=== PATIENT | male | born 1955 | race Asian ===

== ENCOUNTER 2017-05-13 12:33 | Inpatient (IN) | payer OTHER ==
[~2017-05-13] VITALS: Ht 175.3 cm; Wt 72.7 kg
[2017-05-13 13:10] LABS: BASOPHILS % (AUTO) 0.6 % (0.0-2.0); EOSINOPHILS % (AUTO) 3.2 % (1.0-6.0); HEMATOCRIT 35.6 % (41-53); HEMOGLOBIN 11.8 g/dL (13.5-17.5); LYMPHOCYTES # (AUTO) 1.2 K/uL (1.0-4.8); MEAN CORPUSCULAR HEMOGLOBIN 28.8 pg (26.0-34.0); MEAN CORPUSCULAR HGB CONC 33.2 G/dL (31.0-37.0); MEAN CORPUSCULAR VOLUME 87 fL (80-100); MONOCYTES # (AUTO) 0.6 K/uL (0.1-1.0); MONOCYTES % (AUTO) 8.1 % (2.0-9.0); NEUTROPHILS # (AUTO) 5.2 K/uL (1.8-7.7); NEUTROPHILS % (AUTO) 71.1 % (40.0-70.0); PLATELET COUNT (AUTO) 181 K/uL (150-450); WHITE BLOOD COUNT (AUTO) 7.3 K/uL (4.5-11.0)
[2017-05-13] MEDS ORDERED: DOCU250C76 PO (13:19)
[2017-05-13] MEDS ORDERED: INSU100V3 SQ (13:19)
[2017-05-13] MEDS ORDERED: METO-325 PO (13:19)
[2017-05-13] MEDS ORDERED: SODI650T PO (13:19)
[2017-05-13] MEDS ORDERED: INSU3INS3 SQ (13:19)
[2017-05-13] MEDS ORDERED: LIRA0.6P SQ (13:19)
[2017-05-13] MEDS ORDERED: BENA20TA77 PO (13:19)
[2017-05-13] MEDS ORDERED: CHOL1POW2 MC (13:19)
[2017-05-13] MEDS ORDERED: CALC0.253 PO (13:19)
[2017-05-13] MEDS ORDERED: FLUO10TA3 PO (13:19)
[2017-05-13] MEDS ORDERED: FURO80TA3 PO (13:19)
[2017-05-13] MEDS ORDERED: LISI-618 PO ×2 (13:19→14:57)
[2017-05-13] MEDS ORDERED: GENT30CR TP (13:19)
[2017-05-13] MEDS ORDERED: CALC667T3 PO (13:19)
[2017-05-13] MEDS ORDERED: LACT10SO8 PO (13:19)
[2017-05-13 13:20] LABS: ANION GAP 13 mmol/L (8-16); CALCIUM, TOTAL 8.2 mg/dL (8.8-10.5); CARBON DIOXIDE 27 mmol/L (22-29); CHLORIDE 94 mmol/L (98-107); CREATININE 16.93 mg/dL (0.60-1.30); GLOMERULAR FILTR. RATE CALC 3 mL/min (>60); POTASSIUM 5.5 mmol/L (3.5-5.1); SODIUM SERUM 134 mmol/L (136-145); UREA NITROGEN, BLOOD 77 mg/dL (7-18)
[2017-05-13 13:27] LABS: ALANINE AMINOTRANSFERASE 45 U/L (12-78); ALBUMIN 2.8 g/dL (3.4-5.0); ASPARTATE AMINOTRANSFERASE 25 U/L (15-37); BILIRUBIN,TOTAL 0.4 mg/dL (0.1-1.0); TOTAL PROTEIN, SERUM 8.3 g/dL (6.4-8.2)
[2017-05-13] MEDS ORDERED: VITAD1000 PO (14:56)
[2017-05-13] MEDS ORDERED: LISINOPRIL 10 MG TABLET PO ONE (15:00)
[2017-05-13] MEDS ORDERED: 0.9% SODIUM CHLORIDE 10 ML SYRINGE IVP PRN (16:45)
[2017-05-13] MEDS ORDERED: ACETAMINOPHEN 325 MG TABLET PO PRN (16:45)
[2017-05-13] MEDS ORDERED: ONDANSETRON HCL 4 MG/2 ML VIAL IVP PRN (16:45)
[2017-05-13 17:54] VITALS: BP 199/113
[2017-05-13] MEDS: BENAZEPRIL HCL 20 MG TABLET PO SCH (19:30)
[2017-05-13] MEDS: CALCITRIOL 0.25 MCG CAPSULE PO SCH (19:30)
[2017-05-13] MEDS: HydrALAZINE HCL 20 MG/ML VIAL IVP PRN (19:36)
[2017-05-13 20:15] VITALS: BP 192/114
[2017-05-13] MEDS ORDERED: DEXTROSE 50%-WATER 25 GM/50 ML SYRINGE IVP PRN (20:15)
[2017-05-13] MEDS: INSULIN REGULAR, HUMAN 100 UNITS/ML SQ SCH (21:00)
[2017-05-13] MEDS: DOCUSATE SODIUM 250 MG CAPSULE PO SCH (21:00)
[2017-05-13] MEDS: FUROSEMIDE 80 MG TABLET PO SCH (21:34)
[2017-05-13] MEDS: LACTULOSE 20 GM/30 ML SOLUTION UDCUP PO SCH (21:34)
[2017-05-13] MEDS: SODIUM BICARBONATE 650 MG TABLET PO SCH (21:34)
[2017-05-13] MEDS: INSULIN ASPART 100 UNITS/ML SQ PRN (21:36)
[2017-05-13 21:48] VITALS: BP 182/95
[2017-05-13 22:42] LABS: GLUCOSE,POINT OF CARE 153 MG/DL (70-110)
[2017-05-13] MEDS: LISINOPRIL 20 MG TABLET PO SCH (22:44)
[2017-05-14] VITALS (7 sets, daily range): BP systolic 136–175; BP diastolic 71–93
[2017-05-14] MEDS: HydrALAZINE HCL 20 MG/ML VIAL IVP PRN ×2 (00:36→05:46)
[2017-05-14] MEDS: INSULIN ASPART 100 UNITS/ML SQ PRN ×4 (05:52→21:02)
[2017-05-14] MEDS ORDERED: ACETAMINOPHEN 325 MG TABLET PO PRN (06:00)
[2017-05-14 06:26] LABS: INR 1.1 (0.9-1.1); PROTHROMBIN TIME 11.2 SEC (9.4-11.6)
[2017-05-14 06:28] LABS: ALBUMIN 2.4 g/dL (3.4-5.0); BILIRUBIN,TOTAL 0.4 mg/dL (0.1-1.0); CALCIUM, TOTAL 7.5 mg/dL (8.8-10.5); CREATININE 15.46 mg/dL (0.60-1.30); POTASSIUM 4.5 mmol/L (3.5-5.1)
[2017-05-14 06:45] LABS: BILIRUBIN,DIRECT 0.2 mg/dL (0.00-0.20)
[2017-05-14] MEDS: BENAZEPRIL HCL 20 MG TABLET PO SCH (08:18)
[2017-05-14] MEDS: METOPROLOL SUCCINATE 50 MG ER TABLET PO SCH (08:18)
[2017-05-14] MEDS: CHOLECALCIFEROL (VIT D3) 1,000 UNITS TABLET PO SCH (08:18)
[2017-05-14] MEDS: LISINOPRIL 20 MG TABLET PO SCH ×2 (08:18→19:54)
[2017-05-14] MEDS: FUROSEMIDE 80 MG TABLET PO SCH ×2 (08:18→19:53)
[2017-05-14] MEDS: DOCUSATE SODIUM 250 MG CAPSULE PO SCH ×2 (08:18→19:54)
[2017-05-14] MEDS: CALCITRIOL 0.25 MCG CAPSULE PO SCH (08:18)
[2017-05-14] MEDS: LACTULOSE 20 GM/30 ML SOLUTION UDCUP PO SCH ×3 (08:19→19:53)
[2017-05-14] MEDS: SODIUM BICARBONATE 650 MG TABLET PO SCH ×2 (08:24→19:54)
[2017-05-14] MEDS: GENTAMICIN SULFATE 0.1% 15 GM CREAM TP SCH (12:16)
[2017-05-14] MEDS ORDERED: ENALAPRILAT DIHYDRATE 1.25 MG/ML VIAL IVP PRN (13:15)
[2017-05-14] MEDS ORDERED: ONDANSETRON HCL 4 MG/2 ML VIAL IVP PRN (13:15)
[2017-05-14] MEDS ORDERED: HYDROCODONE/ACETAMINOPHEN 5-325 MG TABLET PO PRN (13:15)
[2017-05-14] MEDS: FLUoxetine HCL 20 MG CAPSULE PO SCH (16:05)
[2017-05-14] MEDS: INSULIN REGULAR, HUMAN 100 UNITS/ML SQ SCH (21:06)
[2017-05-15] MEDS: INSULIN ASPART 100 UNITS/ML SQ PRN ×2 (05:57→17:08)
[2017-05-15 08:51] VITALS: BP 164/90
[2017-05-15] MEDS: CHOLECALCIFEROL (VIT D3) 1,000 UNITS TABLET PO SCH (08:51)
[2017-05-15] MEDS: LISINOPRIL 20 MG TABLET PO SCH ×2 (08:51→20:52)
[2017-05-15] MEDS: DOCUSATE SODIUM 250 MG CAPSULE PO SCH ×2 (08:51→20:52)
[2017-05-15] MEDS: FLUoxetine HCL 20 MG CAPSULE PO SCH (08:52)
[2017-05-15] MEDS: SODIUM BICARBONATE 650 MG TABLET PO SCH ×2 (08:52→20:52)
[2017-05-15] MEDS: CALCITRIOL 0.25 MCG CAPSULE PO SCH (08:52)
[2017-05-15] MEDS: METOPROLOL SUCCINATE 50 MG ER TABLET PO SCH (08:52)
[2017-05-15] MEDS: FUROSEMIDE 80 MG TABLET PO SCH ×2 (08:52→20:52)
[2017-05-15] MEDS: BENAZEPRIL HCL 20 MG TABLET PO SCH (08:57)
[2017-05-15] MEDS: GENTAMICIN SULFATE 0.1% 15 GM CREAM TP SCH (08:58)
[2017-05-15] MEDS: LACTULOSE 20 GM/30 ML SOLUTION UDCUP PO SCH ×3 (09:00→20:25)
[2017-05-15 11:46] VITALS: BP 168/88
[2017-05-15 15:29] VITALS: BP 159/79
[2017-05-15 19:46] VITALS: BP 179/99
[2017-05-15] MEDS: INSULIN REGULAR, HUMAN 100 UNITS/ML SQ SCH (20:51)
[2017-05-15 23:30] VITALS: BP 162/80
[2017-05-16 03:30] VITALS: BP 166/88
[2017-05-16] MEDS: INSULIN ASPART 100 UNITS/ML SQ PRN (06:36)
[2017-05-16 07:08] LABS: BASOPHILS # (AUTO) 0.04 K/uL (0.00-0.20); BASOPHILS % (AUTO) 0.6 % (0.0-2.0); EOSINOPHILS # (AUTO) 0.17 K/uL (0.00-0.70); HEMATOCRIT 30.6 % (41-53); LYMPHOCYTES # (AUTO) 1.6 K/uL (1.0-4.8); LYMPHOCYTES % (AUTO) 23.2 % (22.0-44.0); MEAN CORPUSCULAR HEMOGLOBIN 29.1 pg (26.0-34.0); MEAN CORPUSCULAR HGB CONC 32.6 G/dL (31.0-37.0); MEAN CORPUSCULAR VOLUME 89 fL (80-100); MONOCYTES # (AUTO) 0.7 K/uL (0.1-1.0); MONOCYTES % (AUTO) 10.9 % (2.0-9.0); NEUTROPHILS # (AUTO) 4.2 K/uL (1.8-7.7); NEUTROPHILS % (AUTO) 62.8 % (40.0-70.0); PLATELET COUNT (AUTO) 140 K/uL (150-450); RED BLOOD CELL COUNT(AUTO) 3.43 MIL/uL (4.50-5.90); RED CELL DISTRIBUTION WIDTH 15.6 % (11.5-14.5); WHITE BLOOD COUNT (AUTO) 6.7 K/uL (4.5-11.0)
[2017-05-16 07:19] LABS: CALCIUM, TOTAL 7.7 mg/dL (8.8-10.5); CREATININE 14.26 mg/dL (0.60-1.30); MAGNESIUM 2.2 mg/dL (1.80-2.40); POTASSIUM 4.2 mmol/L (3.5-5.1)
[2017-05-16] MEDS: CHOLECALCIFEROL (VIT D3) 1,000 UNITS TABLET PO SCH (07:54)
[2017-05-16] MEDS: METOPROLOL SUCCINATE 50 MG ER TABLET PO SCH (07:55)
[2017-05-16] MEDS: FUROSEMIDE 80 MG TABLET PO SCH (07:55)
[2017-05-16] MEDS: DOCUSATE SODIUM 250 MG CAPSULE PO SCH (07:55)
[2017-05-16] MEDS: BENAZEPRIL HCL 20 MG TABLET PO SCH (07:55)
[2017-05-16] MEDS: LISINOPRIL 20 MG TABLET PO SCH (07:55)
[2017-05-16] MEDS: SODIUM BICARBONATE 650 MG TABLET PO SCH (07:55)
[2017-05-16] MEDS: CALCITRIOL 0.25 MCG CAPSULE PO SCH (07:56)
[2017-05-16] MEDS: GENTAMICIN SULFATE 0.1% 15 GM CREAM TP SCH (07:56)
[2017-05-16 07:59] VITALS: BP 170/91
[2017-05-16] MEDS ORDERED: FLUoxetine HCL 20 MG CAPSULE PO SCH (09:00)
[2017-05-16] MEDS: LACTULOSE 20 GM/30 ML SOLUTION UDCUP PO SCH ×2 (09:00→16:00)
[2017-05-16 11:08] VITALS: BP 158/88
[2017-05-16 16:17] VITALS: BP 136/97
[2017-05-16] MEDS ORDERED: FLUO-191 PO (16:26)
[2017-05-16 20:27] LABS: GLUCOSE COMMENT 1 Received Meds; GLUCOSE,POINT OF CARE 151 MG/DL (70-110)
[2017-05-16 20:33] LABS: GLUCOSE,POINT OF CARE 232 MG/DL (70-110)
[2017-05-16 23:19] LABS: GLUCOSE COMMENT 1 Received Meds; GLUCOSE,POINT OF CARE 239 MG/DL (70-110)
[2017-05-16 23:19] LABS: GLUCOSE COMMENT 1 Received Meds; GLUCOSE,POINT OF CARE 141 MG/DL (70-110)
[2017-05-16 23:19] LABS: GLUCOSE,POINT OF CARE 116 MG/DL (70-110)
[2017-05-16 23:19] LABS: GLUCOSE COMMENT 1 Received Meds; GLUCOSE,POINT OF CARE 157 MG/DL (70-110)
[2017-05-16 23:20] LABS: GLUCOSE COMMENT 1 Received Meds; GLUCOSE,POINT OF CARE 218 MG/DL (70-110)
[2017-05-16 23:20] LABS: GLUCOSE COMMENT 1 Received Meds; GLUCOSE,POINT OF CARE 165 MG/DL (70-110)
[2017-05-16 23:20] LABS: GLUCOSE COMMENT 1 Received Meds; GLUCOSE,POINT OF CARE 141 MG/DL (70-110)
[2017-05-16 23:20] LABS: GLUCOSE COMMENT 1 Received Meds; GLUCOSE,POINT OF CARE 147 MG/DL (70-110)
== END 2017-05-16 18:50 | disposition home or self-care (01) | DRG 682 ==
LOC: EEVIPCON 12:37 → EMS 12:37 → 6N 16:31
PROVIDERS: ADMIT Family Medicine; ATTEND Family Medicine
PROC: 3E1M39Z Irrigation of Peritoneal Cavity using Dialysate, Percutaneous Approach (ICD-10-PCS; principal; 2017-05-13)
DX: I12.0 Hypertensive chronic kidney disease with stage 5 chronic kidney disease or end stage renal disease (principal); N18.6 End stage renal disease; R45.851 Suicidal ideations; F33.2 Major depressive disorder, recurrent severe without psychotic features; I16.0 Hypertensive urgency; E83.51 Hypocalcemia; E11.22 Type 2 diabetes mellitus with diabetic chronic kidney disease; K59.00 Constipation, unspecified; M19.90 Unspecified osteoarthritis, unspecified site; G47.00 Insomnia, unspecified; F41.9 Anxiety disorder, unspecified; D63.8 Anemia in other chronic diseases classified elsewhere; Z91.14 Patient's other noncompliance with medication regimen; Z99.2 Dependence on renal dialysis; Z99.81 Dependence on supplemental oxygen; Z91.15 Patient's noncompliance with renal dialysis; Z79.899 Other long term (current) drug therapy; Z79.4 Long term (current) use of insulin
CPT/HCPCS: 82248; 82962; 83735; 87081; 87340; 90945; 93005; 99291; G0480; J0360; J1815; J2405